=== PATIENT | female | born 1950 | race Caucasian/White ===

== ENCOUNTER 2016-08-21 20:44 | Emergency (ER) | payer MEDICARE ==
[2016-08-21 22:09] LABS: HEMOGLOBIN 12.8 gm/dl (12.3-15.3); RED BLOOD COUNT 4.38 M/UL (4.00-5.10); WHITE BLOOD COUNT 4.6 K/UL (4.5-11.0)
[2016-08-21 22:27] LABS: BUN/CREATININE RATIO 14 (0-10)
== END 2016-08-22 02:18 | disposition home or self-care (01) ==
LOC: ER1 20:44
PROVIDERS: Physician Assistant
DX: F41.9 Anxiety disorder, unspecified (principal); F32.9 Major depressive disorder, single episode, unspecified; Z79.899 Other long term (current) drug therapy
CPT/HCPCS: 36415; 80053; 80307; 81001; 84443; 84484; 85025; 87086; 99283; G0480

== ENCOUNTER 2016-09-28 18:52 | Emergency (ER) | payer MEDICARE ==
[2016-09-28 23:42] LABS: HEMOGLOBIN 12.4 gm/dl (12.3-15.3); RED BLOOD COUNT 4.27 M/UL (4.00-5.10); WHITE BLOOD COUNT 4.8 K/UL (4.5-11.0)
[2016-09-29 00:01] LABS: BUN/CREATININE RATIO 11 (0-10)
== END 2016-09-29 06:15 | disposition home or self-care (01) ==
LOC: ER1 18:52
PROVIDERS: Physician Assistant
DX: K80.70 Calculus of gallbladder and bile duct without cholecystitis without obstruction (principal); N39.0 Urinary tract infection, site not specified
CPT/HCPCS: 36415; 80053; 81001; 82550; 82553; 83690; 83874; 84484; 85025; 87086; 93005; 96361; 96374; 96375; 96376; 99284; J2270; J2405; J2550; J7030; J7050; Q9962

== ENCOUNTER 2016-10-05 17:00 | Emergency (ER) | payer MEDICARE ==
[2016-10-05 17:53] LABS: HEMOGLOBIN 12.7 gm/dl (12.3-15.3); RED BLOOD COUNT 4.31 M/UL (4.00-5.10); WHITE BLOOD COUNT 4.8 K/UL (4.5-11.0)
[2016-10-05 18:04] LABS: BUN/CREATININE RATIO 13 (0-10)
== END 2016-10-05 21:45 | disposition home or self-care (01) ==
LOC: ER1 17:00
PROVIDERS: Emergency Medicine
DX: N30.01 Acute cystitis with hematuria (principal); K80.80 Other cholelithiasis without obstruction; F41.9 Anxiety disorder, unspecified; K58.9 Irritable bowel syndrome, unspecified; Z79.899 Other long term (current) drug therapy
CPT/HCPCS: 36415; 80053; 81001; 83605; 83690; 84484; 85025; 87040; 87086; 93005; 96374; 96375; 99284; J2270; J2405; J2543; J7050; Q9962